=== PATIENT | male | born 1980 | race Caucasian/White ===

== ENCOUNTER → 2021-02-28 | Outpatient (CLI) | payer OTHER ==
[2021-02-28 17:47] VITALS: BP 148/88; PULSE 69; RESP 18; TEMP 99.1; BMI 56.3
--- NOTE | 2021-02-28 18:01 | P.HPBAR ---
Bariatric H&P - History & Physicial H&P Date: 02/28/21 History & Physicial: Visit/CC: initial visit Patient initial contact: Initial weight: Initial weight in pounds: Height: 6 ft 0.75 in Initial BMI: Last weight: Current weight: 192.323 kg Current weight in pounds: 424.00 Current BMI: 56.3 [place] body weight (based on NIH guidelines): 82.781 kg Excess body weight loss: The patient is a 41 year-old M who presents for Bariatric Assessment. DATE OF SERVICE: 02/28/2021 REASON FOR CONSULTATION: Initial bariatric evaluation. HISTORY OF PRESENT ILLNESS: Agustin Fuentes is a 41-year-old male who comes with lifelong morbid obesity. His highest weight is present of 423 pounds. He has family history of morbid obesity. Her has bilateral hip pinning. His mother of hypertension with heart attack. He smokes. He denies prior deep venous thrombosis. He has gastroesophageal reflux disease. He denies stomach or esophahgeal cancer. His father has prostate cancer. He has sleep apnea. He is undergoing medical supervised weight loss. As a result of his morbid obesity, he has developed osteoarthritis of the bilateral hips, obstructive sleep apnea, and gastroesophageal reflux disease. He presents first time in consultation for management of his morbid obesity. At height of 6 feet 0.75 inches, ideal body weight is 183 pounds. He comes in 423 pounds. Body mass index is 56.3. He is 240 pounds overweight. PAST MEDICAL HISTORY: 1. Morbid obesity due to excess calories 2. Body mass index of 56.3, initial 3. Gastroesophageal reflux disease 4. Obstructive sleep apnea 5. Osteoarthritis of the hips 6. Urinary retention PAST SURGICAL HISTORY: 1. Back surgery 2. Hysterectomy 3. Tonsillectomy 4. Rotator cuff surgery 5. Cholecystectomy HOME MEDICATIONS: Home Medications Medication Instructions Recorded Confirmed Ergocalciferol [Vitamin D2 (1250 1,250 mcg PO WEEKLY 04/18/21 04/18/21 Mcg = 71007 Iu)] Previous Rx's Medication Instructions Recorded Omeprazole [PriLOSEC] 40 mg PO DAILY #14 cap 04/09/21 Nicotine 21Mg/24Hr Patch [Habitrol] 1 each TRANSDERM DAILY #15 patch 04/18/21 ALLERGIES: Allergies Allergy/AdvReac Type Severity Reaction Status Date / Time No Known Allergies Allergy Verified 04/18/21 16:19 SOCIAL HISTORY: Tobacco use. FAMILY HISTORY: No family history of ulcerative colitis disease or Crohn's disease. Family history of morbid obesity. No lupus in the family. No reports of stomach or esophageal cancer. His mother of hypertension with heart attack. His father has prostate cancer. REVIEW OF ORGAN SYSTEMS: CONSTITUTIONAL: At height of 6 feet 0.75 inches, ideal body weight is 183 pounds. He comes in 423 pounds. Body mass index is 56.3. He is 240 pounds overweight. HEENT: Denies any active troubles with vision or hearing. ENDOCRINE: Denies diabetes. No hypothyroidism. CARDIOVASCULAR: Denies past reports of palpitations or heart attacks or chest pain. RESPIRATORY: Has daytime somnolence and tobacco use. GASTROINTESTINAL: Denies any bright red blood per rectum. No diarrhea. No constipation. Has gastroesophageal reflux disease. GENITOURINARY: No recent blood in urine MUSCULOSKELETAL: Has lower back pain and joint pain. Has osteoarthritis of the knees. NEURO: No headaches. No seizure disorders. PSYCH: Denies depression. No suicidal ideation. RHEUMATOLOGIC: No lupus. No rheumatoid arthritis. HEMATOLOGIC: Denies any abnormal bleeding or bruising. SKIN: No rash. No skin cancer. PHYSICAL EXAM: VITAL SIGNS: Height 6 foot 0.75 inches, weight 423 pounds. BMI 56.3 Vital Signs Temp 99.1 F 02/28/21 17:37 Pulse 69 02/28/21 17:37 Resp 18 02/28/21 17:37 BP 148/88 02/28/21 17:37 Pulse Ox GENERAL: Well-developed in no acute distress. HEENT: No scleral icterus. Extraocular movements grossly intact. Hears conversational speech. No nasal drainage. NECK: Supple without lymphadenopathy. CHEST: Nonlabored respirations with equal bilateral excursions. CARDIOVASCULAR: Regular rate and regular rhythm. Distal 2+ pulses. ABDOMEN: Obese, soft, nontender, nondistended. MUSCULOSKELETAL: No clubbing, cyanosis. NEURO: No focal or lateralizing signs. Cranial nerves 2 through 12 grossly within normal limits. PSYCH: Appropriate affect. Alert and oriented to person, place and time. SKIN: Good skin turgor. Well perfused. ASSESSMENT: 1. Morbid obesity due to excess calories 2. Body mass index of 56.3, initial 3. Gastroesophageal reflux disease 4. Obstructive sleep apnea 5. Osteoarthritis of the hips 6. Urinary retention 7. Tobacco abuse disorder PLAN: 1. Surgical options including a band, gastric bypass, sleeve gastrectomy were described in detail. Alternatives such as gastric balloon including duodenal switch were described. She is looking into the gastric bypass. 2. The [place] bariatric surgical collaborative data and outcomes calculator were described with surgical options. 3. Recommend a bariatric metabolic panel to evaluate for micro- including macronutrient deficiencies. 4. For history of daytime somnolence, recommend treatment for sleep apnea. 5. Dietary surveillance and counseling was reviewed. Increased protein intake over 80 grams daily advised. 6. Will need cardiac risk assessment. 7. Recommend medical risk assessment. 8. Psych assessment per insurance guidelines. 9. Recommend upper endoscopy. 10. Recommend 12-lead EKG. 11. Recommend esophagram 12. Recommend urine nicotine testing for history of tobacco abuse disorder 13. Recommend urine drug screen Thank you for this consultation. Past Medical History Past Medical History: GERD/Reflux, Sleep Apnea/CPAP/BIPAP Additional Past Medical History / Comment(s): COVID 07/2020. History of Any Multi-Drug Resistant Organisms: None Reported Past Surgical History: Orthopedic Surgery Additional Past Surgical History / Comment(s): pins in bilat hips. plate in left arm. mole removed from top of head. Past Anesthesia/Blood Transfusion Reactions: Previous Problems w/ Anesthesia Additional Past Anesthesia/Blood Transfusion Reaction / Comm: urinary retention post-surgery Past Psychological History: No Psychological Hx Reported Smoking Status: Current every day smoker, Second hand smoke exposure Past Alcohol Use History: Rare Past Drug Use History: None Reported Surgical - Exam Vital Signs Temp Pulse Resp BP 99.1 F 69 18 148/88 02/28/21 17:37 02/28/21 17:37 02/28/21 17:37 02/28/21 17:37 Bariatric Checklist Checklist: Plan: Checklist: EGD: 1. Hiatal hernia: 2. H. Pylori: HgbA1c: Vitamin D: Smoking: Primary care physician referral: Dr. Alatorre ([facility]) Psychiatry clearance: Cardiology clearance: Sleep study: Diet journal: VTE risk score: VTE risk level: Rehab needs at discharge:
== END ==
LOC: BARWHC3 16:11
PROVIDERS: ATTEND Surgery Plastic and Reconstructive Surgery
DX: E66.01 Morbid (severe) obesity due to excess calories (principal); K21.9 Gastro-esophageal reflux disease without esophagitis; G47.33 Obstructive sleep apnea (adult) (pediatric); M17.0 Bilateral primary osteoarthritis of knee; R33.9 Retention of urine, unspecified; Z68.43 Body mass index [BMI] 50.0-59.9, adult; F17.200 Nicotine dependence, unspecified, uncomplicated
CPT/HCPCS: 99203

== ENCOUNTER → 2021-03-02 | Outpatient (CLI) | payer OTHER | END | disposition home or self-care (01) | CPT/HCPCS: 36415; 80053; 80061; 80323; 82306; 82525; 82607; 82728; 82746; 83036; 83540; 83550; 83735; 83970; 84100; 84134; 84255; 84425; 84443; 84590; 84630; 85027; 85610; 85730; 93005 ==

== ENCOUNTER 2021-04-09 07:28 | Day surgery (SDC) | payer OTHER ==
[2021-04-05 09:12] VITALS: BMI 55.9
--- NOTE | 2021-04-09 02:36 | P.GSHP ---
History of Present Illness H&P Date: 04/09/21 CHIEF COMPLAINT: GERD HISTORY OF PRESENT ILLNESS: The patient is a 41-year-old male who presents reports gastroesophageal reflux disease. Upper endoscopy was offered for further evaluation and management. PAST MEDICAL HISTORY: Please see list. PAST SURGICAL HISTORY: Please see list. MEDICATIONS: Please see list. ALLERGIES: Please see list. SOCIAL HISTORY: No illicit drug use FAMILY HISTORY: No reports of Crohn disease or ulcerative colitis. REVIEW OF ORGAN SYSTEMS: CONSTITUTIONAL: No reports of fevers or chills. GI: Denies any blood in stools or constipation. PHYSICAL EXAM: VITAL SIGNS: Stable GENERAL: Well-developed and pleasant in no acute distress. HEENT: No scleral icterus. Extraocular movements grossly intact. Moist buccal mucosa. NECK: Supple without lymphadenopathy. CHEST: Unlabored respirations. Equal bilateral excursions. CARDIOVASCULAR: Regular rate and rhythm. Distal 2+ pulses. ABDOMEN: Soft, nondistended. MUSCULOSKELETAL: No clubbing, cyanosis, or edema. ASSESSMENT: 1. Gastroesophageal reflux disease PLAN: 1. Recommend proceeding with an upper endoscopy Past Medical History Past Medical History: GERD/Reflux, Sleep Apnea/CPAP/BIPAP Additional Past Medical History / Comment(s): COVID 07/2020. History of Any Multi-Drug Resistant Organisms: None Reported Past Surgical History: Orthopedic Surgery Additional Past Surgical History / Comment(s): pins in bilat hips @ age 14. plate in left arm. mole removed from top of head. Past Anesthesia/Blood Transfusion Reactions: Previous Problems w/ Anesthesia Additional Past Anesthesia/Blood Transfusion Reaction / Comment(s): urinary retention post-surgery x1. Smoking Status: Current every day smoker - Past Family History Mother Family Medical History: No Reported History Father Family Medical History: Cancer Additional Family Medical History / Comment(s): Prostate Medications and Allergies Home Medications Medication Instructions Recorded Confirmed Type No Known Home Medications 02/28/21 02/28/21 History Allergies Allergy/AdvReac Type Severity Reaction Status Date / Time No Known Allergies Allergy Verified 02/28/21 17:38
[~2021-04-09 07:28] MED LIST: LACTATED RINGERS 1,000 ML IV SCH; LIDOCAINE 1% (10MG/ML) FOR IV START INTRADERMA PRN
[2021-04-09 07:55] VITALS: TEMP 97.4
[2021-04-09] MEDS ORDERED: LIDOCAINE 1% INJ 10MG/ML (20 ML MDV) ONE (08:08)
[2021-04-09] MEDS ORDERED: PROPOFOL 10 MG/ML 20 ML VIAL IV ONE (08:08)
--- NOTE | 2021-04-09 08:24 | P.PCN ---
Date of Procedure: 04/09/21 Description of Procedure: PREOPERATIVE DIAGNOSIS: Gastroesophageal reflux disease. Morbid obesity. POSTOPERATIVE DIAGNOSIS: Morbid obesity. Gastritis. Gastroesophageal reflux disease. OPERATION: Esophagogastroduodenoscopy with biopsies along antrum. SURGEON: Steffany Leo MD ANESTHESIA: MAC. INDICATIONS: The patient is a 48-year-old female who presents with a history of reflux disease. Benefits and risks of the procedure were described. Informed consent was obtained. DESCRIPTION: The patient was brought into the endoscopy suite and laid in the left lateral decubitus position. An Olympus gastroscope was passed along the posterior oropharynx down to the distal esophagus where the squamocolumnar junction was encountered at 42 cm from the incisors. The stomach was entered and no bile reflux was found. Additional findings are listed below. Biopsies with cold forceps were obtained of the antrum. The first through third portion of the duodenum was examined and unremarkable. Retroflexion of the scope confirmed Hill grade 2 lower esophageal valve. The squamocolumnar junction demonstrated LA grade B erosive esophagitis. The stomach was desufflated. The patient tolerated the procedure well. FINDINGS: Squamocolumnar junction 42 cm from the incisors. Diaphragmatic hiatus at 42 cm. Hill grade 2 lower esophageal valve. LA grade B erosive esophagitis. No active duodenitis. Chronic gastritis with recent bleed RECOMMENDATIONS: Upper endoscopy as needed. Plan - Discharge Summary Discharge Rx Participant: No New Discharge Prescriptions: No Action No Known Home Medications Discharge Medication List No Known Home Medications 02/28/21 [History] Follow up Appointment(s)/Referral(s): Bariatric [place], [place] [NON-STAFF] - 04/18/21 Patient Instructions/Handouts: Gastritis (DC) Discharge Disposition: HOME SELF-CARE
[2021-04-09 08:30] VITALS: RESP 16
[2021-04-09 08:47] VITALS: BP 128/77; PULSE 58
== END 2021-04-09 09:10 | disposition home or self-care (01) ==
LOC: ORWHC2ENDO 07:28
PROVIDERS: ATTEND Surgery Plastic and Reconstructive Surgery
DX: K29.70 Gastritis, unspecified, without bleeding (principal); K21.9 Gastro-esophageal reflux disease without esophagitis; E66.01 Morbid (severe) obesity due to excess calories; G47.30 Sleep apnea, unspecified; Z86.16 Personal history of COVID-19
CPT/HCPCS: 43239; 88305; J2001; J2704

== ENCOUNTER → 2023-01-08 | Outpatient (CLI) | payer OTHER ==
[2023-01-08 15:49] VITALS: BP 164/96; PULSE 86; TEMP 98; BMI 59.6
--- NOTE | 2023-01-08 16:23 | P.HPBAR ---
Bariatric H&P - History & Physicial H&P Date: 01/08/23 History & Physicial: Visit/CC: bariatric appt. Patient initial contact: Initial weight: Initial weight in pounds: Height: 6 ft 0.75 in Initial BMI: Last weight: Current weight: 203.663 kg Current weight in pounds: 449.00 Current BMI: 59.6 [place] body weight (based on NIH guidelines): 82.781 kg Excess body weight loss: The patient is a 42 year-old M who presents for Bariatric Assessment. DATE OF SERVICE: 01/08/2023 CHIEF COMPLAINT: Morbid obesity HISTORY OF PRESENT ILLNESS: Agustin Fuentes is a 42-year-old male with lifelong morbid obesity. As a result of his morbid obesity, he has developed osteoarthritis of the bilateral hips, hypertensive heart disease, obstructive sleep apnea, and gastroesophageal reflux disease. He is looking into surgical options for weight loss. He is looking into gastric bypass. He is looking to stop smoking. He has started multiple new medications including for management of hypertension and asthma. At height of 6 feet 0.75 inches, ideal body weight is 183 pounds. He comes in 448 pounds from 425 pounds, 2 years ago. He has gained 23 pounds in 2 years. Body mass index is 59.6. He is 265 pounds overweight. PAST MEDICAL HISTORY: 1. Morbid obesity due to excess calories 2. Body mass index of 59.6 3. Gastroesophageal reflux disease 4. Obstructive sleep apnea 5. Osteoarthritis of the hips 6. Urinary retention 7. Hypertensive heart disease 8. Asthma 9. Chronic obstructive pulmonary disease PAST SURGICAL HISTORY: 1. Back surgery 2. Hysterectomy 3. Tonsillectomy 4. Rotator cuff surgery 5. Cholecystectomy HOME MEDICATIONS: Home Medications Medication Instructions Recorded Confirmed Albuterol Inhaler [Ventolin Hfa 1 - 2 puff INHALATION Q6H PRN 01/08/23 02/12/23 Inhaler] Diclofenac Submicronized 75 mg PO DAILY 01/08/23 02/12/23 [Diclofenac] Losartan Potassium 100 mg PO DAILY 01/08/23 02/12/23 amLODIPine [Norvasc] 10 mg PO DAILY 01/08/23 02/12/23 Ergocalciferol [Vitamin D2 (1250 50,000 unit PO WEEKLY 01/15/23 02/12/23 Mcg = 28600 Iu)] Aspirin/Acetaminophen/Caffeine 2 each PO DIRECTED PRN 01/30/23 02/12/23 [Excedrin Migraine Caplet] Multivitamins, Thera [Multivitamin 1 tab PO DAILY 01/30/23 02/12/23 (formulary)] Previous Rx's Medication Instructions Recorded Omeprazole [PriLOSEC] 40 mg PO DAILY #30 cap 02/03/23 ALLERGIES: Allergies Allergy/AdvReac Type Severity Reaction Status Date / Time No Known Allergies Allergy Verified 02/03/23 07:01 SOCIAL HISTORY: Tobacco use. FAMILY HISTORY: No family history of ulcerative colitis disease or Crohn's disease. Family history of morbid obesity. No lupus in the family. No reports of stomach or esophageal cancer. His mother of hypertension with heart attack. His father has prostate cancer. REVIEW OF ORGAN SYSTEMS: CONSTITUTIONAL: At height of 6 feet 0.75 inches, ideal body weight is 183 pounds. He comes in 448 pounds. Body mass index is 59.6. He is 26 pounds overweight. HEENT: Denies any active troubles with vision or hearing. ENDOCRINE: Denies diabetes. No hypothyroidism. CARDIOVASCULAR: Denies past reports of palpitations or heart attacks or chest pain. RESPIRATORY: Has daytime somnolence and tobacco use. GASTROINTESTINAL: Denies any bright red blood per rectum. No diarrhea. No constipation. Has gastroesophageal reflux disease. GENITOURINARY: No recent blood in urine MUSCULOSKELETAL: Has lower back pain and joint pain. Has osteoarthritis of the knees. NEURO: No headaches. No seizure disorders. PSYCH: Denies depression. No suicidal ideation. RHEUMATOLOGIC: No lupus. No rheumatoid arthritis. HEMATOLOGIC: Denies any abnormal bleeding or bruising. SKIN: No rash. No skin cancer. PHYSICAL EXAM: VITAL SIGNS: Height 6 foot 0.75 inches, weight 448 pounds. BMI 59.6 Vital Signs Temp 98 F 01/08/23 15:39 Pulse 86 01/08/23 15:39 Resp BP 164/96 01/08/23 15:39 Pulse Ox FiO2 GENERAL: Well-developed in no acute distress. HEENT: No scleral icterus. Extraocular movements grossly intact. Hears conversational speech. No nasal drainage. NECK: Supple without lymphadenopathy. CHEST: Nonlabored respirations with equal bilateral excursions. CARDIOVASCULAR: Regular rate and regular rhythm. Distal 2+ pulses. ABDOMEN: Obese, soft, nontender, nondistended. MUSCULOSKELETAL: No clubbing, cyanosis. NEURO: No focal or lateralizing signs. Cranial nerves 2 through 12 grossly within normal limits. PSYCH: Appropriate affect. Alert and oriented to person, place and time. SKIN: Good skin turgor. Well perfused. LABS: Reviewed. WBC elevated. EKG: Sinus bradycardia. Junctional ST depression. EGD REPORT: Squamocolumnar junction 42 cm from the incisors. Diaphragmatic hiatus at 42 cm. Hill grade 2 lower esophageal valve. LA grade B erosive esophagitis. No active duodenitis. Chronic gastritis with recent bleed ASSESSMENT: 1. Morbid obesity due to excess calories 2. Body mass index of 59.6 3. Gastroesophageal reflux disease 4. Obstructive sleep apnea 5. Osteoarthritis of the hips 6. Urinary retention 7. Hypertensive heart disease 8. Asthma 9. Chronic obstructive pulmonary disease PLAN: 1. Surgical options including a band, gastric bypass, sleeve gastrectomy were described in detail. Alternatives such as gastric balloon including duodenal switch were described. She is looking into the gastric bypass. 2. The [place] bariatric surgical collaborative data and outcomes calculator were described with surgical options. 3. Recommend a bariatric metabolic panel to evaluate for micro- including macronutrient deficiencies. 4. For history of daytime somnolence, recommend evaluation and treatment for sleep apnea. 5. Dietary surveillance and counseling was reviewed. Increased protein intake over 65 grams daily advised. 6. Will need cardiac risk assessment. 7. Recommend medical risk assessment. 8. Psych assessment per insurance guidelines. 9. Recommend upper endoscopy. 10. Recommend 12-lead EKG. 11. Recommend esophagram 12. Recommend update profile. 13. Will need to stop smoking. 14. Repeat of all blood, urine, EGD, and clearances. Past Medical History Past Medical History: GERD/Reflux, Hypertension, Sleep Apnea/CPAP/BIPAP Additional Past Medical History / Comment(s): COVID 07/2020. No Cpap. SOB with activity, was hospitalized 1 month ago with low o2 History of Any Multi-Drug Resistant Organisms: None Reported Past Surgical History: Orthopedic Surgery Additional Past Surgical History / Comment(s): pins in bilat hips @ age 14. plate in left arm. mole removed from top of head. EGD 04/2021. Past Anesthesia/Blood Transfusion Reactions: Previous Problems w/ Anesthesia Additional Past Anesthesia/Blood Transfusion Reaction / Comm: urinary retention post-surgery x1. Past Psychological History: No Psychological Hx Reported Smoking Status: Former smoker Past Alcohol Use History: None Reported Additional Past Alcohol Use History / Comment(s): Quit smoking 5 weeks ago. Past Drug Use History: None Reported - Past Family History Mother Family Medical History: No Reported History Father Family Medical History: Cancer Additional Family Medical History / Comment(s): Prostate Surgical - Exam Vital Signs Temp Pulse BP 98 F 86 164/96 01/08/23 15:39 01/08/23 15:39 01/08/23 15:39 Bariatric Checklist Checklist: Plan: Checklist: EGD: 1. Hiatal hernia: 2. H. Pylori: HgbA1c: Vitamin D: Smoking: Primary care physician referral: Dr. Patel Psychiatry clearance: Cardiology clearance: Sleep study: Diet journal: VTE risk score: VTE risk level: Rehab needs at discharge:
== END ==
LOC: BARWHC3 15:30
PROVIDERS: ATTEND Surgery Plastic and Reconstructive Surgery
DX: E66.01 Morbid (severe) obesity due to excess calories (principal); K21.9 Gastro-esophageal reflux disease without esophagitis; I11.9 Hypertensive heart disease without heart failure; J44.9 Chronic obstructive pulmonary disease, unspecified; G47.33 Obstructive sleep apnea (adult) (pediatric); M16.0 Bilateral primary osteoarthritis of hip; R33.9 Retention of urine, unspecified; Z68.43 Body mass index [BMI] 50.0-59.9, adult; Z99.89 Dependence on other enabling machines and devices; Z86.16 Personal history of COVID-19; Z79.51 Long term (current) use of inhaled steroids; Z87.891 Personal history of nicotine dependence
CPT/HCPCS: 99211

== ENCOUNTER → 2023-01-08 | Outpatient (CLI) | payer OTHER ==
[2023-01-08 18:08] LABS: INR 0.9 (<1.2); Prothrombin Time 9.8 sec (9.0-12.0)
[2023-01-09 01:58] LABS: % Iron Saturation 17.13 (15.00-50.00); ALT 29 U/L (10-49); AST 18 U/L (14-35); African American GFR (CKD) 122.9 (60.0-200.0); Albumin 4.5 g/dL (3.8-4.9); Albumin/Globulin Ratio 1.88 (1.60-3.17); Alkaline Phosphatase 77 U/L (41-126); BUN/Creat Ratio 10.97 Ratio (12.00-20.00); Blood Urea Nitrogen 9.9 mg/dL (9.0-27.0); Calcium 9.3 mg/dL (8.7-10.3); Carbon Dioxide 28.3 mmol/L (20.0-27.5); Chloride 108 mmol/L (96-109); Globulin 2.4 g/dL (1.6-3.3); Glucose 75 mg/dL (70-110); Iron 70 ug/dL (65-175); Magnesium 2.3 mg/dL (1.5-2.4); Phosphorus 2.4 mg/dL (2.4-5.1); Potassium 4.7 mmol/L (3.5-5.5); Sodium 146 mmol/L (135-145); Total Iron Binding Capacity 407 ug/dL (228-460); Total Protein 6.9 g/dL (6.2-8.2)
[2023-01-09 02:06] LABS: Chol/HDL Ratio 6.56 Ratio; Prealbumin 28.8 mg/dL (18.0-42.0)
[2023-01-09 02:12] LABS: HCT 44.9 % (39.6-50.0); HGB 13.9 g/dL (13.0-17.0); MCH 29.1 pg (27.0-32.0); MCV 94.1 fL (80.0-97.0); Mean Platelet Volume 10.6 fL (9.5-12.2); NRBC Per 100 WBC 0 /100 WBCS (0.0-0.0); Platelet Count 312 X 10*3/uL (140-440); RBC 4.77 X 10*6/uL (4.40-5.60); RDW 13.9 % (11.5-14.5); WBC 8.65 X 10*3/uL (4.50-10.00)
[2023-01-09 13:53] LABS: Zinc, Serum 59 ug/dL (60-130)
[2023-01-10 08:23] LABS: Anabasine Urine <2.0 ng/mL (<2.0)
[2023-01-12 19:58] LABS: Selenium 127 mcg/L (63-160)
[2023-01-13 12:53] LABS: Vitamin A 73 ug/dL (38-106)
== END | disposition home or self-care (01) ==
LOC: LABPAT 16:31
PROVIDERS: ATTEND Surgery Plastic and Reconstructive Surgery
DX: Z71.51 Drug abuse counseling and surveillance of drug abuser (principal); E66.01 Morbid (severe) obesity due to excess calories; E89.1 Postprocedural hypoinsulinemia; D50.8 Other iron deficiency anemias; K91.2 Postsurgical malabsorption, not elsewhere classified; E44.0 Moderate protein-calorie malnutrition; E44.1 Mild protein-calorie malnutrition; E45 Retarded development following protein-calorie malnutrition; E55.9 Vitamin D deficiency, unspecified; K74.1 Hepatic sclerosis; N19 Unspecified kidney failure; T56.894A Toxic effect of other metals, undetermined, initial encounter; K50.90 Crohn's disease, unspecified, without complications; I45.10 Unspecified right bundle-branch block; R94.31 Abnormal electrocardiogram [ECG] [EKG]
CPT/HCPCS: 84255; 84134; 84425; 80061; 80053; 82607; 82728; 82525; 82746; 83540; 83550; 83735; 84100; 84443; 84590; 84630; 85027; 85610; 85730; 82306; 83970; 83036; 93005; G0480; 80323

== ENCOUNTER → 2023-01-20 | Outpatient (CLI) | payer OTHER ==
[2023-01-20 11:06] VITALS: BMI 59.2
== END ==
LOC: BARWHC3 08:36
PROVIDERS: ATTEND Surgery Plastic and Reconstructive Surgery
DX: E66.01 Morbid (severe) obesity due to excess calories (principal); Z71.3 Dietary counseling and surveillance; Z68.43 Body mass index [BMI] 50.0-59.9, adult
CPT/HCPCS: 97804

== ENCOUNTER 2023-02-03 06:46 | Day surgery (SDC) | payer OTHER ==
[2023-01-30 13:57] VITALS: BMI 57.6
[2023-02-03] MEDS ORDERED: LIDOCAINE 1% (10MG/ML) FOR IV START INTRADERMA ONE (07:00)
--- NOTE | 2023-02-03 07:05 | P.GSHP ---
History of Present Illness H&P Date: 02/03/23 CHIEF COMPLAINT: GERD HISTORY OF PRESENT ILLNESS: The patient is a 43-year-old male who presents reports gastroesophageal reflux disease. Upper endoscopy was offered for further evaluation and management. PAST MEDICAL HISTORY: Please see list. PAST SURGICAL HISTORY: Please see list. MEDICATIONS: Please see list. ALLERGIES: Please see list. SOCIAL HISTORY: No illicit drug use FAMILY HISTORY: No reports of Crohn disease or ulcerative colitis. REVIEW OF ORGAN SYSTEMS: CONSTITUTIONAL: No reports of fevers or chills. GI: Denies any blood in stools or constipation. PHYSICAL EXAM: VITAL SIGNS: Stable GENERAL: Well-developed and pleasant in no acute distress. HEENT: No scleral icterus. Extraocular movements grossly intact. Moist buccal mucosa. NECK: Supple without lymphadenopathy. CHEST: Unlabored respirations. Equal bilateral excursions. CARDIOVASCULAR: Regular rate and rhythm. Distal 2+ pulses. ABDOMEN: Soft, nondistended. MUSCULOSKELETAL: No clubbing, cyanosis, or edema. ASSESSMENT: 1. Gastroesophageal reflux disease PLAN: 1. Recommend proceeding with an upper endoscopy Past Medical History Past Medical History: GERD/Reflux, Hypertension, Sleep Apnea/CPAP/BIPAP Additional Past Medical History / Comment(s): COVID 07/2020- uses inhaler prn since., No Cpap., SOB with activity., hospitalized 1 month ago with low oxygen ., lower back and hip pain. History of Any Multi-Drug Resistant Organisms: None Reported Past Surgical History: Orthopedic Surgery Additional Past Surgical History / Comment(s): pins in bilat hips @ age 14. (slipped epiphysis)., plate & prostetic head left arm (fx)., mole removed from top of head. ,EGD 04/2021. Past Anesthesia/Blood Transfusion Reactions: Previous Problems w/ Anesthesia Additional Past Anesthesia/Blood Transfusion Reaction / Comment(s): urinary retention post-hip surgery Past Psychological History: No Psychological Hx Reported Smoking Status: Former smoker Past Alcohol Use History: Rare Additional Past Alcohol Use History / Comment(s): Quit smoking approx 5 weeks ago- , hx of 1 1/2 ppd or more, started smoking age 17. Past Drug Use History: None Reported - Past Family History Mother Family Medical History: Myocardial Infarction ([place]) Father Family Medical History: Cancer Additional Family Medical History / Comment(s): Prostate cancer Medications and Allergies Home Medications Medication Instructions Recorded Confirmed Type Omeprazole [PriLOSEC] 40 mg PO DAILY #14 cap 04/09/21 02/03/23 Rx Albuterol Inhaler [Ventolin Hfa 1 - 2 puff INHALATION Q6H PRN 01/08/23 02/03/23 History Inhaler] Diclofenac Submicronized 75 mg PO DAILY 01/08/23 02/03/23 History [Diclofenac] Losartan Potassium 100 mg PO DAILY 01/08/23 02/03/23 History amLODIPine [Norvasc] 10 mg PO DAILY 01/08/23 02/03/23 History Ergocalciferol [Vitamin D2 (1250 50,000 unit PO WEEKLY 01/15/23 02/03/23 History Mcg = 13295 Iu)] Aspirin/Acetaminophen/Caffeine 2 each PO DIRECTED PRN 01/30/23 02/03/23 History [Excedrin Migraine Caplet] Multivitamins, Thera [Multivitamin 1 tab PO DAILY 01/30/23 02/03/23 History (formulary)] Allergies Allergy/AdvReac Type Severity Reaction Status Date / Time No Known Allergies Allergy Verified 02/03/23 07:01
[2023-02-03 07:19] VITALS: TEMP 97
[2023-02-03] MEDS ORDERED: PROPOFOL 10 MG/ML 20 ML VIAL IV ONE (07:22)
[2023-02-03] MEDS ORDERED: LIDOCAINE 2% INJ 20 MG/ML (2 ML VIAL) ONE (07:22)
[2023-02-03 07:40] VITALS: RESP 16
[2023-02-03 07:51] VITALS: BP 115/62; PULSE 70
--- NOTE | 2023-02-03 07:55 | P.PCN ---
Date of Procedure: 02/03/23 Description of Procedure: PREOPERATIVE DIAGNOSIS: Gastroesophageal reflux disease. Morbid obesity. POSTOPERATIVE DIAGNOSIS: Gastroesophageal reflux disease with erosive esophagitis Morbid obesity. Gastritis. Duodenitis OPERATION: Esophagogastroduodenoscopy with biopsies along antrum, duodenum, esophagus SURGEON: Steffany Leo MD ANESTHESIA: MAC. INDICATIONS: The patient is a 43-year-old male who presents with reflux disease. Benefits and risks of the procedure were described. Informed consent was obtained. DESCRIPTION: The patient was brought into the endoscopy suite and laid in the left lateral decubitus position. An Olympus gastroscope was passed along the posterior oropharynx down to the distal esophagus where the squamocolumnar junction was encountered at 45 cm from the incisors. The stomach was entered and no bile reflux was found. Additional findings are listed below. Biopsies with cold forceps were obtained of the antrum. The first through third portion of the duodenum was examined. Retroflexion of the scope confirmed Hill grade 2 lower esophageal valve. The squamocolumnar junction demonstrated LA grade B erosive esophagitis. The stomach was desufflated. The patient tolerated the procedure well. FINDINGS: Squamocolumnar junction 45 cm from the incisors. Diaphragmatic hiatus at 45 cm. Hill grade 2 lower esophageal valve. LA grade B erosive esophagitis with biopsies obtained at GE junction Duodenitis with cold forceps biopsies obtained Chronic gastritis with cold forceps biopsies obtained RECOMMENDATIONS: 1. Upper endoscopy as needed. 2. Patient is on NSAIDS which induces gastritis 3. Omeprazole 40 mg daily Plan - Discharge Summary New Discharge Prescriptions: New Omeprazole [PriLOSEC] 40 mg PO DAILY #30 cap Continue Diclofenac Submicronized [Diclofenac] 75 mg PO DAILY Albuterol Inhaler [Ventolin Hfa Inhaler] 1 - 2 puff INHALATION Q6H PRN PRN Reason: Shortness Of Breath Omeprazole [PriLOSEC] 40 mg PO DAILY #14 cap amLODIPine [Norvasc] 10 mg PO DAILY Losartan Potassium 100 mg PO DAILY Ergocalciferol [Vitamin D2 (1250 Mcg = 54467 Iu)] 50,000 unit PO WEEKLY Multivitamins, Thera [Multivitamin (formulary)] 1 tab PO DAILY Aspirin/Acetaminophen/Caffeine [Excedrin Migraine Caplet] 2 each PO DIRECTED PRN PRN Reason: Headache Discharge Medication List Omeprazole [PriLOSEC] 40 mg PO DAILY #14 cap 04/09/21 [Rx] Albuterol Inhaler [Ventolin Hfa Inhaler] 1 - 2 puff INHALATION Q6H PRN 01/08/23 [History] Diclofenac Submicronized [Diclofenac] 75 mg PO DAILY 01/08/23 [History] Losartan Potassium 100 mg PO DAILY 01/08/23 [History] amLODIPine [Norvasc] 10 mg PO DAILY 01/08/23 [History] Ergocalciferol [Vitamin D2 (1250 Mcg = 42976 Iu)] 50,000 unit PO WEEKLY 01/15/23 [History] Aspirin/Acetaminophen/Caffeine [Excedrin Migraine Caplet] 2 each PO DIRECTED PRN 01/30/23 [History] Multivitamins, Thera [Multivitamin (formulary)] 1 tab PO DAILY 01/30/23 [History] Omeprazole [PriLOSEC] 40 mg PO DAILY #30 cap 02/03/23 [Rx] [facility]ment([facility]Ref[facility] [place] [facility] [place] [facility] Patient Instructions/Handouts: Gastritis (DC) Discharge Disposition: HOME SELF-CARE
== END 2023-02-03 08:37 | disposition home or self-care (01) ==
LOC: ORWHC2ENDO 06:46
PROVIDERS: ATTEND Surgery Plastic and Reconstructive Surgery
DX: K29.70 Gastritis, unspecified, without bleeding (principal); K31.89 Other diseases of stomach and duodenum; K29.80 Duodenitis without bleeding; K21.00 Gastro-esophageal reflux disease with esophagitis, without bleeding; I10 Essential (primary) hypertension; E66.01 Morbid (severe) obesity due to excess calories; G47.33 Obstructive sleep apnea (adult) (pediatric); F10.90 Alcohol use, unspecified, uncomplicated; Z99.89 Dependence on other enabling machines and devices; Z86.16 Personal history of COVID-19; Z68.41 Body mass index [BMI] 40.0-44.9, adult; Z98.890 Other specified postprocedural states; Z87.891 Personal history of nicotine dependence; Z82.49 Family history of ischemic heart disease and other diseases of the circulatory system; Z79.899 Other long term (current) drug therapy; Z79.82 Long term (current) use of aspirin
CPT/HCPCS: 43239; J2704; J2001; 88305

== ENCOUNTER → 2023-02-12 | Outpatient (CLI) | payer OTHER ==
[2023-02-12 15:09] VITALS: BP 179/82; PULSE 67; TEMP 97.9; BMI 59.9
--- NOTE | 2023-02-12 15:39 | P.BASOAP ---
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 Needs 100 pounds weight loss. He want gastric bypass helps with reflux. He wants to lose 200 pounds. Objective - Vital Signs Vital signs: Vital Signs Temp 97.9 F 02/12/23 15:07 Pulse 67 02/12/23 15:07 Resp BP 179/82 02/12/23 15:07 Pulse Ox FiO2 Intake & Output 02/11/23 02/12/23 02/12/23 18:59 06:59 18:59 Weight 204.57 kg Assessment/Plan Plan: Date: 02/12/23 Initial Weight: Initial BMI: Current Weight: 204.57 kg Current BMI: 59.9 Type of Surgery: Total Volume in Band: Previous Volume: Volume Removed: Volume Added: Band Size:
== END ==
LOC: BARWHC3 13:27
PROVIDERS: ATTEND Surgery Plastic and Reconstructive Surgery
DX: E66.01 Morbid (severe) obesity due to excess calories (principal); Z68.43 Body mass index [BMI] 50.0-59.9, adult; Z98.84 Bariatric surgery status
CPT/HCPCS: 99211